=== PATIENT | male | born 1970 | race Caucasian/White ===

== ENCOUNTER 2024-03-11 16:30 | Emergency (ER) | payer BC, SELFPAY ==
[2024-03-11 16:38] VITALS: BP 177/106
[2024-03-11 17:14] LABS: % Basophils 0.4 % (0-2); % Eosinophils 1.3 % (0-6); % Immature Granulocytes 0.3 % (0-0.5); % Lymphocytes 41.6 % (20.5-51.1); % Monocytes 7.6 % (1.7-9.3); % Neutrophils 48.8 % (42.2-75.2); Absolute Eosinophils 0.1 10^3/uL (0-0.7); Absolute Monocytes 0.5 10^3/uL (0.1-0.6); Absolute Neutrophils 3.5 10^3/uL (1.4-6.5); Hematocrit 43.4 % (39.0-52.0); Hemoglobin 13.8 g/dL (13.0-18.0); Mean Corp Hgb Conc. 31.8 g/dL (33.0-37.0); Mean Corpuscular Hgb 20.2 pg (27.0-31.0); Mean Corpuscular Volume 63.5 fL (80.0-94.0); Mean Platelet Volume 9.7 fL (7.4-10.4); Nucleated Red Blood Cells % 0 % (-); Platelet Count 335 10^3/uL (130-400); Red Blood Cell Count 6.84 10^6/uL (4.70-6.10); Red Cell Dist. Width 18.5 % (11.5-14.5); White Blood Cell Count 7.1 10^3/uL (4.8-10.8)
[2024-03-11 17:29] LABS: ALT (SGPT) 32 U/L (0-50); AST (SGOT) 26 U/L (17-59); Albumin 4.2 g/dl (3.5-5.0); Alkaline Phosphatase 124 U/L (38-126); Blood Urea Nitrogen 16 mg/dl (9-20); Carbon Dioxide 28 mmol/L (22-30); Chloride 100 mmol/L (98-107); Glucose 144 mg/dl (70-99); Potassium 3.7 mmol/L (3.5-5.1); Sodium 137 mmol/L (135-145); Total Bilirubin 1.2 mg/dl (0.2-1.3); Total Protein 7.6 g/dl (6.3-8.2); eGFR > 60.00
[2024-03-11 17:40] LABS: Troponin I < 0.012 ng/ml
[2024-03-11 19:45] VITALS: BP 168/95
[2024-03-11 19:50] VITALS: BMI 33.5
[2024-03-11 20:00] VITALS: BP 141/88
--- NOTE | 2024-03-11 20:49 | ED.GENMED ---
History of Present Illness
General
Chief Complaint: Chest Pain
Source: patient
Exam Limitations: none
Time Seen by Provider: 03/11/24 20:35
History of Present Illness
History of Present Illness:
53yoM with a history of for evaluation of chest pain. Patient reports pain in his left upper chest over the past several days. Pain is worse with coughing and is described as feeling like a muscle soreness. He decided to check his blood pressure
today which was elevated at 150/100 at which point he decided to come to the ED for evaluation. Of note, patient had the flu 2 weeks ago. He denies any fevers, shortness of breath, paresthesias, dizziness, syncope, nausea, vomiting, leg swelling,
calf pain. He denies any history of coronary artery disease. He follows with [place] [facility] and sees his 3d technologist yearly.
Past History
Past History
ED Past Medical History: HTN
Social History
Tobacco: Smoker
Personal:
Phy Exam
General Physical Exam
General Presentation: well appearing and no apparent distress
General age: appears stated age
General Skin: warm and dry
General Habitus: normal
General Mental: alert
ENT Exam
ENT Exam: normocephalic
Cardiovascular Exam
Cardiovascular Exam: regular rate/rhythm, no edema and no murmur
Pulmonary Exam
Pulmonary Exam: lungs clear, no respiratory distress, no rales, no crackles, no rhonchi and other (Point tenderness to the L upper chest. No skin changes.)
Neurological Exam
Neurological Exam: alert
[place] Coma Scale
Eye Opening: Spontaneous
Verbal Response: Oriented
Motor Response: Obeys Commands
GCS Total Score: 15
Skin Exam
Skin Exam: normal color and warm/dry
Psychiatric Exam
Psychiatric Exam: normal mood/affect
Scores
Heart Score for Chest Pain Patients
STEMI patient?: No
History: Slightly or Non-Suspicious
ECG: Nonspecific Repolarization
Age: >45 - <65 years
Risk Factors: 1 or 2 Risk Factors
Troponin: </= Normal Limit
Heart Score for Chest Pain Patients: 3
Heart Score Risk: 2.5% MACE over next 6 weeks
Course
Orders/Labs/Results
Orders:
Orders
03/11/24 16:31
EKG [Electrocardiogram (*1)] Urgent
Reason for Study: Chest Pain
EKG- Treatment ONCE
03/11/24 16:49
Complete Blood Count/With Diff Urgent
Comprehensive Metabolic Panel Urgent
Troponin I Urgent
03/11/24 19:48
Chest [CR Chest - 2 Views ] Urgent
Comment:
Reason For Exam: chest pain
03/11/24 20:48
Cardiac Monitoring- Treatment ONCE
03/11/24 20:49
Electrocardiogram (*1) Urgent
Reason for Study: Chest Pain
EKG- Treatment ONCE
03/11/24 20:59
Troponin I Urgent
Abnormal Lab Results
03/11/24
16:49
RBC 6.84 H 10^6/uL
(4.70-6.10)
MCV 63.5 L fL
(80.0-94.0)
MCH 20.2 L pg
(27.0-31.0)
MCHC 31.8 L g/dL
(33.0-37.0)
RDW 18.5 H %
(11.5-14.5)
Glucose 144 H mg/dl
(70-99)
03/11/24 16:49
03/11/24 16:49
Vital Signs
Initial and Last Documented VS:
Initial Vital Signs
Temp Pulse Resp BP Pulse Ox
98.2 F 85 18 177/106 99
03/11/24 16:38 03/11/24 16:38 03/11/24 16:38 03/11/24 16:38 03/11/24 16:38
Last Documented Vital Signs
Temp Pulse Resp BP Pulse Ox
98.2 F 68 13 152/91 97
03/11/24 16:38 03/11/24 20:45 03/11/24 20:45 03/11/24 21:00 03/11/24 21:45
MDM/Problems Addressed
Differential Diagnosis Includes:
53yoM here with L upper chest pain x several days. Describes as a muscle soreness. Worse with coughing. Had the flu 2 weeks ago. He is hypertensive with otherwise normal vitals. He is well appearing in no distress. There is point tenderness to the L
upper chest. Remainder of exam is reassuring. Differential diagnosis includes but is not limited to: ACS, pneumonia, musculoskeletal, myocarditis
Initial ED plan: Cardiac labs and EKG obtained in triage. EKG shows NSR with nonspecific ST changes. Troponin WNL. Will check repeat EKG/troponin and CXR.
*EKG
Interpreted by ED Provider?: Yes
EKG Intrepretation Date: 03/11/24
Heart Rate: 78
Rate: normal
Rhythm: sinus
[place]: left axis deviation
Interval: normal interval
QRS Pattern: normal QRS
Ischemia: non-specific ST changes
*Critical Care Note
Total Time (30-74mins, 75-104mins- exclusive of procedures): Not Applicable
Update Note
Update Note:
Repeat EKG and troponin unchanged. CXR is negative for acute findings but shows 'Probable 2 diaphragmatic hernias. Follow-up nonemergent chest CT may be considered for confirmation.' Patient informed of incidental findings and provided with a copy
of the radiology report. Suspect musculoskeletal pain given that it is reproducible. Advised close f/u with PCP and strict ED return precautions discussed. He was discharged in stable condition.
ED Attending Note
-
Portions of this chart may have been created with voice recognition software.� Occasional wrong word or��sound alike� substitutions may have occurred due to the inherent limitations of voice recognition software.
Discharge Plan
Departure
Patient Disposition: Home (Routine Discharge)
Date of Disposition: 03/11/24
Time of Disposition: 21:55
Patient with high blood pressure during this ER visit?: Yes
Discharge Problem:
Chest pain
Instructions: Chest Pain PCP Follow Up
Prescriptions:
No Action
amlodipine 10 MG tablet
10 mg PO DAILY
Lisinopril
20 mg PO DAILY
Patient Comments:
dose unknown
simethicone [Phazyme] 250 MG capsule
250 mg PO DAILY
Fish Oil
1,550 mg PO DAILY
oxycodone 5 MG tablet
5 mg PO Q4HPRN PRN (Reason: pain) Qty: 10 0RF
tizanidine 4 MG tablet
4 - 8 mg PO TIDPRN PRN (Reason: back pain) Qty: 30 0RF
meloxicam 15 MG tablet
15 mg PO DAILY Qty: 14 0RF
Referrals:
Sandy Schmid DO [Family Provider] -
Activity Restrictions/Additional Instructions:
Please call your family doctor tomorrow to schedule a follow-up appointment. Return to the ER immediately with any new or worsening symptoms.
You should have a nonemergent CT of your chest for further evaluation of the possible hernias seen on your chest x-ray.
Interventions
Interventions:
*Risk Screen - Suicide Last Done: 03/11/24 16:38
*General Assessment Last Done: 03/11/24 16:38
*Neglect/Abuse Screening Last Done: 03/11/24 16:38
ED- Fall Risk Assessment Last Done: 03/11/24 19:50
*ED COVID-19 Vaccine History Last Done: 03/11/24 16:38
*Nursing Disposition Last Done: 03/11/24 22:03
ED- Cardiac Assessment Last Done: 03/11/24 19:50
Discharge Date and Time
Discharge Date/Time: 03/11/24 22:04
Print Language: ROMANSH
[2024-03-11 21:00] VITALS: BP 152/91
[2024-03-11 21:29] LABS: Troponin I < 0.012 ng/ml
== END 2024-03-11 22:04 | disposition home or self-care (01) ==
LOC: EMR 16:30
PROVIDERS: Physician Assistant; EMERGENCY PHYSICIAN Student in an Organized Health Care Education/Training Program; FAMILY PHYSICIAN Family Medicine
DX: R07.89 Other chest pain (principal); I10 Essential (primary) hypertension; F17.200 Nicotine dependence, unspecified, uncomplicated; Z91.018 Allergy to other foods; Z91.048 Other nonmedicinal substance allergy status
CPT/HCPCS: 99284; 71046; 80053; 84484; 85025; 93005